=== PATIENT | male | born 2000 | race Caucasian/White ===

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

== ENCOUNTER → 2019-11-25 | Outpatient (CLI) | payer BC | END | disposition home or self-care (01) | LOC: LABWHC1 06:52 | PROVIDERS: ATTEND Physician Assistant | DX: Z11.59 Encounter for screening for other viral diseases (principal); Z20.828 Contact with and (suspected) exposure to other viral communicable diseases ==

== ENCOUNTER 2019-11-26 22:56 | Inpatient (IN) | payer BC ==
--- NOTE | 2019-11-27 00:06 | ED ---
Psych HPI - General Chief Complaint: Psychiatric Symptoms Stated Complaint: Mental Health Time Seen by Provider: 11/26/19 23:15 Source: patient Mode of arrival: ambulatory - History of Present Illness Initial Comments: Graeme is a 19-year-old male was brought to the ER today by police for evaluation of psychiatric symptoms. Patient states that 3 days ago he bought some energy pills from a gas station he's been taking those he has not slept for over 72 hours. 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 - Related Data Home Medications Medication Instructions Recorded Confirmed No Known Home Medications 08/14/16 08/14/16 Allergies Allergy/AdvReac Type Severity Reaction Status Date / Time No Known Allergies Allergy Verified 11/26/19 23:09 Review of Systems ROS Statement: Those systems with pertinent positive or pertinent negative responses have been documented in the HPI. ROS Other: All systems not noted in ROS Statement are negative. Past Medical History Past Medical History: No Reported History Additional Past Medical History / Comment(s): Anger problems History of Any Multi-Drug Resistant Organisms: None Reported Past Surgical History: No Surgical Hx Reported Past Psychological History: Depression Smoking Status: Never smoker Past Alcohol Use History: None Reported Past Drug Use History: None Reported General Exam - General Exam Comments Initial Comments: Physical Exam GENERAL: Patient is well-developed and well-nourished. Patient is nontoxic and well- hydrated and is in no distress. HENT: Normocephalic, Atraumatic. EYES: PERRL, EOMI Eyes are bloodshot PULMONARY: Unlabored respirations. No audible rales rhonchi or wheezing was noted. CARDIOVASCULAR: There is a regular rate and rhythm without any murmurs gallops or rubs. ABDOMEN: Soft and nontender with normal bowel sounds. SKIN: Skin is clear with no lesions or rashes and otherwise unremarkable. : Deferred NEUROLOGIC: Patient is alert and oriented x3. Moving all extremities spontaneously MUSCULOSKELETAL: Normal extremities with adequate strength and full range of motion. No lower extremity swelling or edema. No calf tenderness. PSYCHIATRIC: Rapid pressured speech, agitation, flight of ideas Limitations: no limitations Course Vital Signs 11/26/19 11/27/19 23:05 05:14 Temperature 98.2 F Pulse Rate 72 56 L Respiratory 16 16 Rate Blood Pressure 126/75 103/56 O2 Sat by Pulse 98 97 Oximetry Medical Decision Making - Medical Decision Making Patient was seen and evaluated history is obtained from patient and police Patient was petitioned by police Patient appears very manic, he admits to not sleeping has watery red eyes admits to taking [id number] energy pills Labs were unremarkable urine drug screen only positive for marijuana Patient was given oral Ativan for anxiety and agitation Patient was evaluated by EPS who agree the patient is acutely manic agree with plan for admission to inpatient psych, patient certification was completed. - Lab Data Result diagrams: 11/26/19 23:50 11/26/19 23:50 Lab Results 11/26/19 11/26/19 11/26/19 Range/Units 23:50 23:50 23:50 WBC 9.6 (4.0-11.0) k/uL RBC 4.74 (4.30-5.90) m/uL Hgb 15.6 (13.0-17.5) gm/dL Hct 44.6 (39.0-53.0) % MCV 94.1 (80.0-100.0) fL MCH 32.8 (25.0-35.0) pg MCHC 34.9 (31.0-37.0) g/dL RDW 11.9 (11.5-15.5) % Plt Count 253 (150-450) k/uL Neutrophils % 62 % Lymphocytes % 31 % Monocytes % 5 % Eosinophils % 1 % Basophils % 1 % Neutrophils # 5.9 (1.3-7.7) k/uL Lymphocytes # 3.0 (1.0-4.8) k/uL Monocytes # 0.5 (0-1.0) k/uL Eosinophils # 0.1 (0-0.7) k/uL Basophils # 0.1 (0-0.2) k/uL Sodium (137-145) mmol/L Potassium (3.5-5.1) mmol/L Chloride (98-107) mmol/L Carbon Dioxide (22-30) mmol/L Anion Gap mmol/L BUN (9-20) mg/dL Creatinine (0.66-1.25) mg/dL Est GFR (CKD-EPI)AfAm (>60 ml/min/1.73 sqM) Est GFR (CKD-EPI)NonAf (>60 ml/min/1.73 sqM) Glucose (74-99) mg/dL Calcium (8.4-10.2) mg/dL Total Bilirubin (0.2-1.3) mg/dL AST (17-59) U/L ALT (4-49) U/L Alkaline Phosphatase (38-126) U/L Total Protein (6.3-8.2) g/dL Albumin (3.5-5.0) g/dL Salicylates <1.0 mg/dL Urine Opiates Screen Not Detected (NotDetected) Ur Oxycodone Screen Not Detected (NotDetected) Urine Methadone Screen Not Detected (NotDetected) Ur Propoxyphene Screen Not Detected (NotDetected) Acetaminophen <10.0 ug/mL Ur Barbiturates Screen Not Detected (NotDetected) U Tricyclic Antidepress Not Detected (NotDetected) Ur Phencyclidine Scrn Not Detected (NotDetected) Ur Amphetamines Screen Not Detected (NotDetected) U Methamphetamines Scrn Not Detected (NotDetected) U Benzodiazepines Scrn Not Detected (NotDetected) Urine Cocaine Screen Not Detected (NotDetected) U Marijuana (THC) Screen Detected H (NotDetected) Serum Alcohol <10 mg/dL 11/26/19 Range/Units 23:50 WBC (4.0-11.0) k/uL RBC (4.30-5.90) m/uL Hgb (13.0-17.5) gm/dL Hct (39.0-53.0) % MCV (80.0-100.0) fL MCH (25.0-35.0) pg MCHC (31.0-37.0) g/dL RDW (11.5-15.5) % Plt Count (150-450) k/uL Neutrophils % % Lymphocytes % % Monocytes % % Eosinophils % % Basophils % % Neutrophils # (1.3-7.7) k/uL Lymphocytes # (1.0-4.8) k/uL Monocytes # (0-1.0) k/uL Eosinophils # (0-0.7) k/uL Basophils # (0-0.2) k/uL Sodium 140 (137-145) mmol/L Potassium 4.0 (3.5-5.1) mmol/L Chloride 107 (98-107) mmol/L Carbon Dioxide 20 L (22-30) mmol/L Anion Gap 13 mmol/L BUN 16 (9-20) mg/dL Creatinine 0.84 (0.66-1.25) mg/dL Est GFR (CKD-EPI)AfAm >90 (>60 ml/min/1.73 sqM) Est GFR (CKD-EPI)NonAf >90 (>60 ml/min/1.73 sqM) Glucose 99 (74-99) mg/dL Calcium 9.8 (8.4-10.2) mg/dL Total Bilirubin 0.9 (0.2-1.3) mg/dL AST 43 (17-59) U/L ALT 27 (4-49) U/L Alkaline Phosphatase 66 (38-126) U/L Total Protein 7.9 (6.3-8.2) g/dL Albumin 4.9 (3.5-5.0) g/dL Salicylates mg/dL Urine Opiates Screen (NotDetected) Ur Oxycodone Screen (NotDetected) Urine Methadone Screen (NotDetected) Ur Propoxyphene Screen (NotDetected) Acetaminophen ug/mL Ur Barbiturates Screen (NotDetected) U Tricyclic Antidepress (NotDetected) Ur Phencyclidine Scrn (NotDetected) Ur Amphetamines Screen (NotDetected) U Methamphetamines Scrn (NotDetected) U Benzodiazepines Scrn (NotDetected) Urine Cocaine Screen (NotDetected) U Marijuana (THC) Screen (NotDetected) Serum Alcohol mg/dL Disposition Clinical Impression: Acute psychosis Disposition: TRANSFER TO PSYCH HOSP/UNIT Condition: Stable Is patient prescribed a controlled substance at d/c from ED?: No
[2019-11-27 00:09] LABS: Basophils # (A) 0.1 k/uL (0-0.2); Basophils % (A) 1 %; Eosinophils # (A) 0.1 k/uL (0-0.7); Eosinophils % (A) 1 %; HCT 44.6 % (39.0-53.0); HGB 15.6 gm/dL (13.0-17.5); Lymphocytes % (A) 31 %; MCH 32.8 pg (25.0-35.0); MCHC 34.9 g/dL (31.0-37.0); MCV 94.1 fL (80.0-100.0); Mean Platelet Volume 7.6; Monocytes # (A) 0.5 k/uL (0-1.0); Monocytes % (A) 5 %; Neutrophils # (A) 5.9 k/uL (1.3-7.7); Neutrophils % (A) 62 %; Platelet Count 253 k/uL (150-450); RBC 4.74 m/uL (4.30-5.90); RDW 11.9 % (11.5-15.5); WBC 9.6 k/uL (4.0-11.0)
[2019-11-27 00:18] LABS: Cocaine Screen,Urine Not Detected (NotDetected); Phencyclidine Screen,Urine Not Detected (NotDetected); Urn Cannabinoid Scrn Detected (NotDetected)
[2019-11-27 00:19] LABS: Amphetamine Screen,Urine Not Detected (NotDetected); Barbiturate Screen,Urine Not Detected (NotDetected); Benzodiazepines Screen,Urine Not Detected (NotDetected); Methadone Screen, Urine Not Detected (NotDetected); Opiate Screen,Urine Not Detected (NotDetected); Oxycodone Screen, Urine Not Detected (NotDetected); Tricyclic Antidepressant,Urine Not Detected (NotDetected)
[2019-11-27 00:23] LABS: Acetaminophen <10.0 ug/mL; Alcohol <10 mg/dL; Salicylate <1.0 mg/dL
[2019-11-27 01:45] LABS: ALT 27 U/L (4-49); African American GFR (CKD) >90 (>60 ml/min/1.73 sqM); Albumin 4.9 g/dL (3.5-5.0); Anion Gap 13 mmol/L; Blood Urea Nitrogen 16 mg/dL (9-20); Calcium 9.8 mg/dL (8.4-10.2); Carbon Dioxide 20 mmol/L (22-30); Chloride 107 mmol/L (98-107); Glucose 99 mg/dL (74-99); Non-African American GFR(CKD) >90 (>60 ml/min/1.73 sqM); Sodium 140 mmol/L (137-145); Total Bilirubin 0.9 mg/dL (0.2-1.3); Total Protein 7.9 g/dL (6.3-8.2)
[2019-11-27] MEDS ORDERED: LORazepam 1 MG TAB PO STA (01:58)
[2019-11-27 02:20] LABS: AST 43 U/L (17-59); Alkaline Phosphatase 66 U/L (38-126)
[2019-11-27] MEDS ORDERED: MAG HYDROX/AL HYDROX/SIMETH 30 ML CUP PO PRN (05:13)
[2019-11-27] MEDS ORDERED: MAGNESIUM HYDROXIDE 2,400 MG/10 ML CUP PO PRN (05:13)
[2019-11-27 09:00] LABS: Albumin 4.3 g/dL (3.5-5.0); Bilirubin, Delta 0.2 mg/dL (0.0-0.2); Bilirubin,Unconjugated 1.1 mg/dL (0.0-1.1); Total Bilirubin 1.3 mg/dL (0.2-1.3); Total Protein 6.8 g/dL (6.3-8.2)
[2019-11-27] MEDS ORDERED: ZIPRASIDONE 20 MG VIAL IM ONE (11:04)
[2019-11-27] MEDS ORDERED: WATER FOR INJECTION, STERILE 10 ML IV ONE (11:04)
[2019-11-27] MEDS: ZIPRASIDONE 20 MG VIAL IM PRN (11:39)
[2019-11-27] MEDS: LORazepam 1 MG TAB PO PRN ×2 (11:40→23:53)
[2019-11-27] MEDS ORDERED: LORazepam 2 MG/ML INJ IM STA (11:48)
[2019-11-27] MEDS ORDERED: LORazepam 2 MG/ML INJ ONE (11:50)
--- NOTE | 2019-11-27 13:47 | P.HP ---
Psychiatric H&P - . H&P Date: 11/27/19 History & Physical: IDENTIFYING DATA: He is a 19-year-old single male admitted to the psychiatric unit involuntarily. His mother completed the petition that read "has not slept in days, taking caffeine pills to stay awake, spray painting the car, quit his job, posting threats unsocial media, referring to himself and a third alliance party. calling himself different names. Reckless behavior, potential self-harm, thinks he is a rapper. Getting mad about fast food orders been messed up, blowing up cell phones, friends had called me saying that this is unusual." HISTORY OF PRESENT ILLNESS: I reviewed the medical record and interviewed the patient. I left messages to speak with his mother. He denied all the allegations in the petition. He alleged she had difficulty sleeping only on the days where he took some "speed", caffeine pills" energy drinks". He denied persistent problems with insomnia. He admitted that he spray painted his car multiple colors but he did so because he plans to become a rapper and wants people to "notice me." He quit his job of 2 years because "they were not treating me right." He has plans to drive his car to [facility] and become a "rapper". When I asked the location of [facility] he replied that his "[place]where below [place]." He justified his anger over a fast food order. He complained that his mother is continuing to control his life. He talked about his past history where she has placed him in psychiatric hospitals beginning was 15 years old. He reported he stated that he is not going back to "[facility]." He denied psychotic symptoms such as auditory, visual or olfactory halluci nations, ideas reference, thought insertion, thought broadcasting or thought control. He is able to maintain his behavior until approximately 1140. He became increasingly agitated and distressed. He attemptedto leave the unit and began yelling and swearing at nursing staff when they redirected him. He became angry when he could not call his father (the wall phones are turned off during groups) . He demanded a awyer. He became increasingly angry and started slamming the phone repeatedly. When nursing told him that he will get an injection if he does not calm, he started to "back away". When staff attempted approach him he began to hit and kick wildly. Several staff carried him to his room and administered Geodon 20mg IM medication. A "Mr. Roche" was called. PAST PSYCHIATRIC HISTORY: This is his fourth psychiatric hospitalization. He was first admitted to this [facility] at 15. He is had 2 other admissions to [facility]. All of the admissions were involuntary. He has a diagnosis of bipolar illness. He is currently not in treatment or prescribed psychotropic medications. PAST MEDICAL HISTORY: He has no chronic medical Illnesses. ALLERGIES: NO KNOWN DRUG ALLERGIES SUBSTANCE USE HISTORY: He was vague about his substance use history. He denied use of drugs except for using "speed ... that one time." He also denied use of marijuana. His UDS was positive for marijuana. Her serum alcohol was 0. He is never been any substance abuse treatment program. FAMILY PSYCHIATRIC/SUBSTANCE USE HISTORY: He is unaware of family history of psychiatric illness LEGAL HISTORY: He is no history of major medical problems. SOCIAL HISTORY: His parents when he was 1 years old. He was raised primarily by his mother. His father lives in [place]. He has 1 sister. He left school in the 10th grade and did not receive his GED. 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 MENTAL STATUS EXAM: He presented as a thin casually groomed young male who was guarded and suspicious. He made eye contact and appeared to attend to the interview. He had no distinguishing features or prominent physical modalities. He had a blunted facial expression. He was restless but not agitated or impulsive. His speech was spontaneous with slight increase in rate and rhythm. His affect was irritable and suspicious. He denied suicidal ideation and wishes. He denied homicidal ideation. He denied feeling hopeless, helpless or worthless. He ruminated about the circumstances that brought him in hospital, his multiple psychiatric hospitalizations in his relationship with his mother. He did not express clear ideas reference or delusional beliefs. He is paranoid and had very paranoid ideation. His thinking was concrete but his associations were coherent and logical. He denied hallucinations and did not appear to responding to internal stimuli. STRENGTHS: Good physical health, supportive family, history of gainful employment, stable housing WEAKNESSES: Lack of insight or understanding of his mental illness, substance use IMPRESSION: He is a 19-year-old single male admitted to the psychiatric unit involuntarily with a recent marked change in behavior characterized by paranoia, aggressiveness insomnia agitation and impaired judgment. He has a recent history of abuse of stimulants including "speed", caffeine and "energy drinks". He is restless, agitated, paranoid and impulsive. His management on the unit required administration of IM medications. He should be treated on an inpatient basis with combination of psychopharmacology and multimodal therapy. Differential includes substance-induced mood disorder as well as bipolar illness. PRINCIPLE DIAGNOSIS: Unspecified mood disorder, rule out bipolar disorder most recent episode manic, rule out substance-induced mood disorder, rule out amphetamine use disorder, rule out cannabis use disorder RECOMMENDATION: Admitted to the psychiatric unit. Proceed with involuntary hospitalization. Safety precautions. Consult medicine for initial physical exam and medical history. dish room worker completed initial psychosocial assessment coordinate discharge and aftercare. Begin Abilify 10 mg daily and titrated according to clinical response and tolerance. Administer medications IM after the probate order if refuses the oral medication. Encourage participation in therapeutic groups and activities. Obtain collateral information from family. Family clinical status response to treatment daily basis. Allergies Allergy/AdvReac Type Severity Reaction Status Date / Time No Known Allergies Allergy Verified 11/27/19 05:45 Vital Signs Temp 98.5 F 11/27/19 05:40 Pulse 87 11/27/19 05:40 Resp 14 11/27/19 05:40 BP 140/75 11/27/19 05:40 Pulse Ox 99 11/27/19 05:40 Intake & Output 11/26/19 11/27/19 11/27/19 18:59 06:59 18:59 Weight 64.495 kg Laboratory Last Values WBC 9.6 k/uL (4.0-11.0) 11/26/19 23:50 RBC 4.74 m/uL (4.30-5.90) 11/26/19 23:50 Hgb 15.6 gm/dL (13.0-17.5) 11/26/19 23:50 Hct 44.6 % (39.0-53.0) 11/26/19 23:50 MCV 94.1 fL (80.0-100.0) 11/26/19 23:50 MCH 32.8 pg (25.0-35.0) 11/26/19 23:50 MCHC 34.9 g/dL (31.0-37.0) 11/26/19 23:50 RDW 11.9 % (11.5-15.5) 11/26/19 23:50 Plt Count 253 k/uL (150-450) 11/26/19 23:50 Neutrophils % 62 % 11/26/19 23:50 Lymphocytes % 31 % 11/26/19 23:50 Monocytes % 5 % 11/26/19 23:50 Eosinophils % 1 % 11/26/19 23:50 Basophils % 1 % 11/26/19 23:50 Neutrophils # 5.9 k/uL (1.3-7.7) 11/26/19 23:50 Lymphocytes # 3.0 k/uL (1.0-4.8) 11/26/19 23:50 Monocytes # 0.5 k/uL (0-1.0) 11/26/19 23:50 Eosinophils # 0.1 k/uL (0-0.7) 11/26/19 23:50 Basophils # 0.1 k/uL (0-0.2) 11/26/19 23:50 Sodium 140 mmol/L (137-145) 11/26/19 23:50 Potassium 4.0 mmol/L (3.5-5.1) 11/26/19 23:50 Chloride 107 mmol/L (98-107) 11/26/19 23:50 Carbon Dioxide 20 mmol/L (22-30) L 11/26/19 23:50 Anion Gap 13 mmol/L 11/26/19 23:50 BUN 16 mg/dL (9-20) 11/26/19 23:50 Creatinine 0.84 mg/dL (0.66-1.25) 11/26/19 23:50 Est GFR (CKD-EPI)AfAm >90 (>60 ml/min/1.73 sqM) 11/26/19 23:50 Est GFR (CKD-EPI)NonAf >90 (>60 ml/min/1.73 sqM) 11/26/19 23:50 Glucose 99 mg/dL (74-99) 11/26/19 23:50 Calcium 9.8 mg/dL (8.4-10.2) 11/26/19 23:50 Total Bilirubin 1.3 mg/dL (0.2-1.3) 11/27/19 07:51 Conjugated Bilirubin 0.0 mg/dL (0.0-0.3) 11/27/19 07:51 Unconjugated Bilirubin 1.1 mg/dL (0.0-1.1) 11/27/19 07:51 Delta Bilirubin 0.2 mg/dL (0.0-0.2) 11/27/19 07:51 AST 37 U/L (17-59) 11/27/19 07:51 ALT 26 U/L (4-49) 11/27/19 07:51 Alkaline Phosphatase 59 U/L (38-126) 11/27/19 07:51 Total Protein 6.8 g/dL (6.3-8.2) 11/27/19 07:51 Albumin 4.3 g/dL (3.5-5.0) 11/27/19 07:51 Triglycerides 19 mg/dL (<150) 11/27/19 07:51 Cholesterol 96 mg/dL (<200) 11/27/19 07:51 LDL Cholesterol, Calc 41 mg/dL (0-99) 11/27/19 07:51 HDL Cholesterol 51 mg/dL (40-60) 11/27/19 07:51 TSH 4.020 mIU/L (0.465-4.680) 11/27/19 07:51 Salicylates <1.0 mg/dL 11/26/19 23:50 Urine Opiates Screen Not Detected (NotDetected) 11/26/19 23:50 Ur Oxycodone Screen Not Detected (NotDetected) 11/26/19 23:50 Urine Methadone Screen Not Detected (NotDetected) 11/26/19 23:50 Ur Propoxyphene Screen Not Detected (NotDetected) 11/26/19 23:50 Acetaminophen <10.0 ug/mL 11/26/19 23:50 Ur Barbiturates Screen Not Detected (NotDetected) 11/26/19 23:50 U Tricyclic Antidepress Not Detected (NotDetected) 11/26/19 23:50 Ur Phencyclidine Scrn Not Detected (NotDetected) 11/26/19 23:50 Ur Amphetamines Screen Not Detected (NotDetected) 11/26/19 23:50 U Methamphetamines Scrn Not Detected (NotDetected) 11/26/19 23:50 U Benzodiazepines Scrn Not Detected (NotDetected) 11/26/19 23:50 Urine Cocaine Screen Not Detected (NotDetected) 11/26/19 23:50 U Marijuana (THC) Screen Detected (NotDetected) H 11/26/19 23:50 Serum Alcohol <10 mg/dL 11/26/19 23:50 11/27/19 13:20
[2019-11-27] MEDS ORDERED: LORazepam 2 MG/ML INJ IM PRN (14:36)
--- NOTE | 2019-11-27 16:18 | P.HPMEDMHU ---
History of Present Illness H&P Date: 11/27/19 Chief Complaint: Psychosis Patient is 19-year-old male with no known past medical history significant admitted to the mental health unit for psychosis. Patient seen and examined at bedside. He denies any recent cough, cold, fever, flu, nausea, vomiting, or dysuria. Review of Systems Pertinent positives and negatives as discussed in HPI, a complete review of systems was performed and all other systems are negative. Past Medical History Past Medical History: No Reported History Additional Past Medical History / Comment(s): Anger problems History of Any Multi-Drug Resistant Organisms: None Reported Past Surgical History: No Surgical Hx Reported Smoking Status: Never smoker Past Alcohol Use History: None Reported - Past Family History Father Family Medical History: No Reported History Mother Family Medical History: No Reported History Medications and Allergies Home Medications Medication Instructions Recorded Confirmed Type No Known Home Medications 08/14/16 11/27/19 History Allergies Allergy/AdvReac Type Severity Reaction Status Date / Time No Known Allergies Allergy Verified 11/27/19 05:45 Physical Exam Osteopathic Statement: *. No significant issues noted on an osteopathic structural exam other than those noted in the History and Physical/Consult. Vitals: Vital Signs Temp Pulse Pulse Resp BP BP Pulse Ox 11/27/19 05:40 98.5 F 87 14 140/75 99 11/27/19 05:14 56 L 16 103/56 97 11/26/19 23:05 98.2 F 72 16 126/75 98 Intake and Output 11/27/19 11/27/19 11/27/19 06:59 14:59 22:59 Other: Weight 64.495 kg General: ill appearing, No distress, appears at stated age, normal weight Derm: no unusual rashes/lesions no unusual ecchymoses, warm, dry Head: atraumatic, normocephalic, symmetric Eyes: EOMI, no lid lag, anicteric sclera, pupils equal round reactive to light ENT: Nose and ears atraumatic, no thrush, no pharyngeal erythema Neck: No thyromegaly, no cervical lymphadenopathy, trachea midline, supple Mouth: no lip lesion, mucus membranes moist Cardiovascular: S1S2 reg, no murmur, positive posterior tibial pulse bilateral, no edema, capillary refill less than 2 seconds Lungs: Decreased bs bilateral, no rhonchi, no rales , no accessory muscle use Abdominal: soft, nontender to palpation, no guarding, no appreciable organomegaly, normal bowel sounds Ext: no gross muscle atrophy, muscle strength 5 out of 5 in all 4 extremities grossly, no contractures, Neuro: CN II-XI grossly intact, light touch intact all 4 extremities, finger to nose within normal limits, Psych: awake, slight confusion, tired after having injection Cranial Nerve Examination - Cranial Nerves Cranial Nerve II- Optic: Intact Cranial Nerve III- Oculomotor: Intact Cranial Nerve IV- Trochlear: Intact Cranial Nerve V- Trigeminal: Intact Cranial Nerve - Abducens: Intact Cranial Nerve VII- Facial: Intact Cranial Nerve VIII- Auditory: Intact Cranial Nerve IX- Glossopharyngeal: Intact Cranial Nerve X- Vagus: Intact Cranial Nerve XI- Accessory: Intact Cranial Nerve XII- Hypoglossal: Intact Results CBC & Chem 7: 11/26/19 23:50 11/26/19 23:50 Labs: Abnormal Lab Results - Last 24 Hours (Table) 11/26/19 11/26/19 Range/Units 23:50 23:50 Carbon Dioxide 20 L (22-30) mmol/L U Marijuana (THC) Screen Detected H (NotDetected) Assessment and Plan Assessment: Well exam 19 year old male - will nee PCP on discharge Psychosis - your psych management
[2019-11-27 18:07] LABS: Hemoglobin A1C 5.3 % (4.0-6.0)
[2019-11-28] MEDS: ACETAMINOPHEN TAB 325 MG TAB PO PRN (12:13)
--- NOTE | 2019-11-28 13:47 | P.PN ---
Progress Note - Text Progress Note Date: 11/28/19 Clinical Problems: Unspecified mood disorder, rule out bipolar disorder most recent episode manic, rule out substance-induced mood disorder, rule out amphetamine use disorder, rule out cannabis use disorder Interim history: I reviewed the medical record, interviewed the patient and discuss his treatment and treatment plan during team meeting. He informed me that he is ready for discharge. 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 He had a middle folder with several sheets of paper where he had written out his "rap songs." He walked out of the office prematurely when I explained that he will not be discharged today. He came to the hospital involuntarily and we are recommending treatment with a mood stabilizer. He replied that he will not take medications and left the office. Yesterday morning he had episodes of agitation requiring a "Mr. strong" and IM injection of Geodon 20 mg. According to nurse, he was yelling and swearing at the motel front desk attendant demanding to call his father. The nurse told him that the phones were turned off during group therapy. He demanded to speak with a physics technical officer and was offered to use the phone to call the physics technical officer. He became angry and started slamming the phone. The nurse could not redirect him or calm his anger. He began to "wildly" scream and kick when staff attempted to restrain him. Mental status exam: Appendectomy presented as a thin 19-year-old young male who was initially pleasant but became quickly angry and demanding. He made eye contact and appeared to attend to the interview. He had initially bright and cheerful facial expression but when his mood change his facial expression was consistent. He has been restless and frequently pace the unit. His speech is rapid but with normal volume. His affect is elevated, labile and at times intense and appropriate. He did not express suicidal ideation or wishes. He is not expressed homicidal ideation. His thinking was concrete but his associations were coherent and organized. He denied hallucinations did not appear to be responding to internal stimuli. Assessment: In regards agitated, irritable and emotionally labile. His presentation is most consistent with drew or hypomania. Plan: Continue inpatient treatment. Safety precautions. Proceed with involuntary hospitalization. Continue Ativan 1 mg IM 3 times a day when necessary and Geodon 20 mg IM twice a day when necessary for agitation acute psychosis. Continue discussion about the need for treatment with a mood stabilizer such as a second generation antipsychotic, lithium, Depakote, left mid goal or Tegretol. Encourage participation in therapeutic groups and activ ities as tolerated. Evaluate clinical status response to treatment daily basis.
[2019-11-28] MEDS: LORazepam 1 MG TAB PO PRN (15:24)
[2019-11-28] MEDS: ZIPRASIDONE 20 MG VIAL IM PRN (15:51)
[2019-11-29] MEDS: ACETAMINOPHEN TAB 325 MG TAB PO PRN ×2 (15:28→23:28)
--- NOTE | 2019-11-29 18:21 | P.PN ---
Progress Note - Text Progress Note Date: 11/29/19 Subjective: Patient was seen today as a cross coverage for Dr. Cavazos. The patient was evaluated, chart reviewed, case discussed with the treatment team. Patient reported good sleep last night. Appetite was reported as "fair ". Patient has not been going to many groups and other unit activities. The patient refuses to take any psychiatric medications and none prescribed. As per progress note Abilialexandry was discussed with the patient, but apparently the patient refuses any m edications. Patient presents was manic symptoms including been very disruptive and intrusive, talkative, pressured speech, and tangential. Patient was insisting on not taking any psychiatric medications, and he refused to discuss any psych medications. He was superficial in his answers, and generally denies any psychiatric symptoms including hallucinations, paranoid ideation, depression, anxiety, or mood swings. He denies any suicidal or homicidal thoughts, and was fixated on discharge. He presents to some degree internally preoccupied and has very limited insight about his psychiatric illness and the need for treatment. Objective: Vitals has been reviewed. Mental status examination; Appearance: The patient appears stated age, disheveled, not well groomed, average body built, no specific features. Gait/posture: Normal gait, Normal arm swinging: No abnormal movements. Attitude and behavior: Not engaged, not cooperative, intermittent eye contact. Motor activity: Increased psychomotor activity Speech: Pressured, hyperverbal Mood: Irritable Affect: To some degree labile Thought form: Tangential. Thought content: Non-delusional, denies suicidal thoughts, denies homicidal thoughts, denies intentions or plans. Perception: Denies any auditory or visual hallucinations Attention: No impairment. Orientation: Patient is oriented to time place person and situation. Insight: Patient has poor insight about psychiatric disorder. Judgment: Patient has limited judgment about his psychiatric treatment. Assessment: Unspecified mood disorder. Rule out bipolar disorder, most recent episode manic. Rule out substance-induced mood disorder. Rule out amphetamine use disorder. Rule out cannabis use disorder. Plan: Continue inpatient level of care due to need for further monitoring and stabilization Precautions: Continue 15 minutes check for safety. Consider medical consultation if any acute medical issues arise. Provide the patient individual, group therapy, substance use disorder counseling to give better insight and learn coping skills. Continue follow-up with the patient daily to monitor progress of mood symptoms. Medications: Patient refused to take any psychiatric medications. Continue encourage patient to consider medications. May be considered court order to start psychiatric medications. Continue when necessary medications for agitation and severe anxiety. Discharge patient to OUTPATIENT services upon a stabilization
[2019-11-30] MEDS: LORazepam 1 MG TAB PO PRN (09:50)
--- NOTE | 2019-11-30 16:20 | P.PN ---
Progress Note - Text Progress Note Date: 11/30/19 Subjective: Patient was seen today as a cross coverage for Dr. Cavazos. The patient was evaluated, chart reviewed, case discussed with the treatment team. Patient continues to present the same as yesterday that he is intrusive with some disruptive behavior, talkative with pressured speech. Patient refuses to discuss any psychiatric medications and was very fixated on discharge tomorrow. He was very superficial and evasive in his answers and generally denies any psychiatric symptoms including depression, suicidal/homicidal ideation, hallucinations, or delusions. Patient reports good sleep last night and he denies any appetite problems. He attends some groups but eventually has been very disruptive and not able to stop talking. Patient continued to have very poor insight about his mental illness and need for treatment Objective: Vitals has been reviewed. Mental status examination; Appearance: The patient appears stated age, disheveled, not well groomed, average body built, no specific features. Gait/posture: Normal gait, Normal arm swinging: No abnormal movements. Attitude and behavior: Not engaged, not cooperative, intermittent eye contact. Motor activity: Increased psychomotor activity Speech: Pressured, hyper-verbal Mood: Irritable Affect: To some degree labile Thought form: Tangential. Thought content: Non-delusional, denies suicidal thoughts, denies homicidal thoughts, denies intentions or plans. Perception: Denies any auditory or visual hallucinations Attention: No impairment. Orientation: Patient is oriented to time place person and situation. Insight: Patient has poor insight about psychiatric disorder. Judgment: Patient has limited judgment about his psychiatric treatment. Assessment: Unspecified mood disorder. Rule out bipolar disorder, most recent episode manic. Rule out substance-induced mood disorder. Rule out amphetamine use disorder. Rule out cannabis use disorder. Plan: Continue inpatient level of care due to need for further monitoring and stabilization Precautions: Continue 15 minutes check for safety. Consider medical consultation if any acute medical issues arise. Provide the patient individual, group therapy, substance use disorder counseling to give better insight and learn coping skills. Continue follow-up with the patient daily to monitor progress of mood symptoms. Medications: Patient refused to take any psychiatric medications. Continue encourage patient to consider medications. May be considered court order to start psychiatric medications. Continue when necessary medications for agitation and severe anxiety. Discharge patient to OUTPATIENT services upon a stabilization
--- NOTE | 2019-12-01 15:29 | P.PN ---
Progress Note - Text Progress Note Date: 12/01/19 Clinical Problems: Unspecified mood disorder, rule out bipolar disorder most recent episode manic, rule out substance-induced mood disorder, rule out amphetamine use disorder, rule out cannabis use disorder Interim history: I reviewed the medical record, interviewed the patient and discuss his treatment and treatment plan during team meeting. He denied problems or concerns other than wanting to be discharged. He met with the court probate compliance attorney and deferred the probate hearing. We discussed treatment he agreed to begin Abilify. Mental status exam: He presented as a thin 19-year-old young male who was initially pleasant and cooperative. He made eye contact and appeared to attend to the interview. He had a blunted facial expression. He has been restless and frequently pace the unit. His speech is rapid but with normal volume. His affect is elevated, labile and at times intense and appropriate. He did not express suicidal ideation or wishes. He is not expressed homicidal ideation. His thinking was concrete but his associations were coherent and organized. He denied hallucinations did not appear to be responding to internal stimuli. Assessment: He remains agitated, irritable and emotionally labile. His presentation is most consistent with drew or hypomania. Plan: Continue inpatient treatment. Safety precautions. Proceed with involuntary hospitalization. Begin Abilify 10 mg daily. Continue Ativan 1 mg IM 3 times a day when necessary and Geodon 20 mg IM twice a day when necessary for agitation acute psychosis. Encourage participation in therapeutic groups and activities as tolerated. Evaluate clinical status response to treatment [place].
[2019-12-01] MEDS: ARIPiprazole 10 MG TAB PO SCH (16:45)
[2019-12-02] MEDS: ARIPiprazole 10 MG TAB PO SCH (09:53)
--- NOTE | 2019-12-02 14:59 | P.PN ---
Progress Note - Text Progress Note Date: 12/02/19 Clinical Problems: Unspecified mood disorder, rule out bipolar disorder most recent episode manic, rule out substance-induced mood disorder, rule out amphetamine use disorder, rule out cannabis use disorder Interim history: I reviewed the medical record, interviewed the patient and discuss his treatment and treatment plan during team meeting. He denied problems or concerns other than wanting to be discharged. He refused Abilify. He stated that he talked to his dad who support his decision not to take medications. Mental status exam: He presented as a thin 19-year-old young male who was initially pleasant and cooperative. He made eye contact and appeared to attend to the interview. He had a blunted facial expression. He has been restless and frequently pace the unit. His speech was rapid but with normal volume. His affect is elevated, labile and at times intense and appropriate. He did not express suicidal ideation or wishes. He is not expressed homicidal ideation. His thinking was concrete but his associations were coherent and organized. He denied hallucinations did not appear to be responding to internal stimuli. Assessment: He remains agitated, irritable and emotionally labile. His presentation is most consistent with hypomania. Plan: Continue inpatient treatment. Safety precautions. Proceed with involuntary hospitalization. Begin Abilify 10 mg daily. Continue Ativan 1 mg IM 3 times a day when necessary and Geodon 20 mg IM twice a day when necessary for agitation acute psychosis. Encourage participation in therapeutic groups and activities as tolerated. Evaluate clinical status response to treatment daily basis.
[2019-12-03] MEDS: ARIPiprazole 10 MG TAB PO SCH (10:19)
--- NOTE | 2019-12-03 13:40 | P.PN ---
Progress Note - Text Progress Note Date: 12/03/19 Clinical Problems: Unspecified mood disorder, rule out bipolar disorder most recent episode manic, rule out substance-induced mood disorder, rule out amphetamine use disorder, rule out cannabis use disorder Interim history: I reviewed the medical record, interviewed the patient and discuss his treatment and treatment plan during team meeting. He stated that his father just arrived to [place] from [place]. He complained that his mother has conspired to make him look ill, take medications and force him to return to the hospital for many years. He alleged that his father would attest that her actions were unnecessary. He became disheartened when I explained the involuntary hospitalization process. We could not discharge him until the probate hearing that is scheduled for December 14. Even after our meeting and discussion of the involuntary process he again asked if she could be discharge to his father's supervision. He asked me to speak with his father ([phone]). There is no answer and I left a message. He denied the need for psychiatric treatment and refused to consider treatment with psychotropic medications." Her mother forced me to take them as a child and I am and adult and don't need take them anymore." Mental status exam: He presented as a thin 19-year-old young male who was pleasant and cooperative. He made eye contact and appeared to attend to the interview. He had a blunted facial expression. He has been restless and frequently pace the unit. His speech was slow but with normal volume. His affect was depressed. He did not express suicidal ideation or wishes. He is not expressed homicidal ideation. His thinking was concrete but his associations were coherent and organized. He denied hallucinations did not appear to be responding to internal stimuli. Assessment: He is less agitated irritable and emotionally labile. He is appearing more depressed than on admission. Plan: Continue inpatient treatment. Safety precautions. Proceed with involuntary hospitalization. Continue Ativan 1 mg IM 3 times a day when necessary and Geodon 20 mg IM twice a day when necessary for agitation acute psychosis. Encourage participation in therapeutic groups and activities as tolerated. Evaluate clinical status response to treatment daily basis.
[2019-12-03] MEDS: ZIPRASIDONE 20 MG VIAL IM PRN (18:13)
--- NOTE | 2019-12-04 15:40 | P.PN ---
Progress Note - Text Progress Note Date: 12/04/19 Clinical Problems: Unspecified mood disorder, rule out bipolar disorder most recent episode manic, rule out substance-induced mood disorder, rule out amphetamine use disorder, rule out cannabis use disorder Interim history: I reviewed the medical record, interviewed the patient and discuss his treatment and treatment plan during team meeting. His only concern was discharge and he asked me several times during the day if she can be discharged. I reminded him of his legal situation and explained that he will not be discharged at least until the probate hearing. He continues to refuse to take psychotropic medications and denies the need for medications. " By father community to take medications." He became acutely agitated yesterday to the point he required security to assist with administration of Geodon 20 mg IM. Apparently the sources of stress was not receiving the [place] that he had ordered. Mental status exam: He presented as a thin 19-year-old young male who was pleasant and cooperative. He made eye contact and appeared to attend to the interview. He had a blunted facial expression. He has been restless and frequently pace the unit. His speech was slow but with normal volume. His affect was irritable. He did not express suicidal ideation or wishes. He is not expressed homicidal ideation. His thinking was concrete but his associations were coherent and organized. He denied hallucinations did not appear to be responding to internal stimuli. Assessment: He is continuing to have difficulties with behavioral dyscontrol with peers of agitation necessitating IM medications. Plan: Continue inpatient treatment. Safety precautions. Proceed with involuntary hospitalization. Continue Ativan 1 mg IM 3 times a day when necessary and Geodon 20 mg IM twice a day when necessary for agitation acute psychosis. Encourage participation in therapeutic groups and activities as tolerated. Evaluate clinical status response to treatment daily basis.
[2019-12-04] MEDS: LORazepam 1 MG TAB PO PRN (16:02)
--- NOTE | 2019-12-05 15:04 | P.PN ---
Progress Note - Text Progress Note Date: 12/05/19 Clinical Problems: Unspecified mood disorder, rule out bipolar disorder most recent episode manic, rule out substance-induced mood disorder, rule out amphetamine use disorder, rule out cannabis use disorder Interim history: I reviewed the medical record, interviewed the patient and discuss his treatment and treatment plan during team meeting. He received 1 mg Ativan IM yesterday afternoon for increasing agitation, irritability and disruptiveness. Nursing notes indicate that he would not calm with redirection or verbal interventions. He denied that he had an episode of dyscontrol yesterday and denied that he received an IM injection. He continues denied need for this hospitalization or the need for psychotropic medications. He cites his father's opinion as a reason for not agreeing to take psychotropic medications. He denied problems and concerns other than wanting to be released from the hospital. Mental status exam: He presented as a thin 19-year-old young male who was pleasant and cooperative. He made eye contact and appeared to attend to the interview. He had a blunted but bright facial expression. He has been restless and frequently pace the unit. His speech was slow but with normal volume. His affect was calm and appropriate. He did not express suicidal ideation or wishes. He is not expressed homicidal ideation. His thinking was concrete but his associations were coherent and organized. He denied hallucinations did not appear to be responding to internal stimuli. Assessment: He is continuing to have difficulties with behavioral control with periods of agitation necessitating IM medications. Plan: Continue inpatient treatment. Safety precautions. Probate hearing scheduled for 12/10/2019. Continue Ativan 1 mg IM 3 times a day when necessary and Geodon 20 mg IM twice a day when necessary for agitation acute psychosis. Encourage participation in therapeutic groups and activities as tolerated. Evaluate clinical status response to treatment daily basis.
[2019-12-06] MEDS ORDERED: ZIPRASIDONE 20 MG VIAL IM ONE (08:55)
--- NOTE | 2019-12-06 17:34 | P.PN ---
Progress Note - Text Progress Note Date: 12/06/19 Interval history: Patient is seen in cross coverage today. He relays that his mood is doing great. He is currently not on any scheduled medication. He has an upcoming court hearing of this coming week. Mental status exam: He is alert and cooperative with the interview. His speech is fluent, not rapid or pressured. His thought processes organized. His mood he describes as great. He denies any thoughts of harm to self or others. He does not verbalize any hallucinations. Plan: We'll continue to monitor patient's status and continue to provide cross coverage through the weekend.
[2019-12-06] MEDS: ZIPRASIDONE 20 MG VIAL IM PRN (23:39)
--- NOTE | 2019-12-07 17:20 | P.PN ---
Progress Note - Text Progress Note Date: 12/07/19 Interval history: Patient is seen in [facility] in today. He states last night he received 2 injections. He states that he was ending up for a peer on the unit. He states he felt his heart was beating really fast after he got the injections but then he fell asleep. Says he attended 1 group today. He is also been doing some reading. Mental status exam: He is alert and cooperative with the interview. His speech is fluent, not rapid or pressured. Thought processes are organized. His mood currently appears to be stable. He is not exhibiting any manic symptoms does not complain of any significant depression. He does not voice any thoughts of harm to self or others. Plan: Patient will be made tainted with current treatment regimen. Continue to monitor his status and monitor his ongoing response to treatment.
[2019-12-07] MEDS: ACETAMINOPHEN TAB 325 MG TAB PO PRN (22:59)
--- NOTE | 2019-12-08 13:31 | P.PN ---
Progress Note - Text Progress Note Date: 12/08/19 Clinical Problems: Bipolar disorder most recent episode manic, rule out amphetamine use disorder, rule out cannabis use disorder Interim history: I reviewed the medical record, interviewed the patient and discuss his treatment and treatment plan during team meeting. He continues to have episodes of behavioral dyscontrol. For example, Sunday afternoon he became acutely agitated and acted sexually inappropriate towards nurses. He perseverated about the involuntary hospitalization alleging that we are formulating his rights by keeping him in the hospital. He could not be redirected and nursing duties assistance security to administer 20 mg of Geodon and 1 mg of Ativan IM. He requested to be discharged home. He alleged that he has no reason to be in a psychiatric hospital and that his mother "lied" on the petition. He repeated that she will not take any medications. Mental status exam: He presented as a thin 19-year-old young male who was pleasant during the interview. He made eye contact and appeared to attend to the interview. He had a bright facial expression. He has been restless and frequently pace the unit. His speech was spontaneous with normal rate, rhythm and volume. His affect was elevated but not inappropriate. He did not express suicidal ideation or wishes. He denied homicidal ideation. His thinking was concrete but his associations were coherent and organized. He perseverated about the hospitalization, the involuntary process, medications and his mother. He denied hallucinations did not appear to be responding to internal stimuli. Assessment: He is continuing to have difficulties with behavioral control with periods of agitation necessitating IM medications. Plan: Continue inpatient treatment. Safety precautions. Probate hearing scheduled for 12/10/2019. Continue Ativan 1 mg IM 3 times a day when necessary and Geodon 20 mg IM twice a day when necessary for agitation acute psychosis. Encourage participation in therapeutic groups and activities as tolerated. Evaluate clinical status response to treatment daily basis.
[2019-12-08] MEDS: ACETAMINOPHEN TAB 325 MG TAB PO PRN (18:21)
--- NOTE | 2019-12-09 13:39 | P.PN ---
Progress Note - Text Progress Note Date: 12/09/19 Clinical Problems: Bipolar disorder most recent episode hypomanic, rule out amphetamine use disorder, rule out cannabis use disorder Interim history: I reviewed the medical record, interviewed the patient and discuss his treatment and treatment plan during team meeting. His only concern was discharge and he expressed concern about the probate hearing tomorrow. He again stated that he will not take medications. He has had no episodes of behavioral control last 24 hours. Mental status exam: He presented as a thin 19-year-old young male. He withdrawn and quiet. His speech was spontaneous with decreased rate, rhythm and volume. His affect was depressed but not inappropriate. He did not express suicidal ideation or wishes. He denied homicidal ideation. His thinking was concrete but his associations were coherent and organized. He perseverated about the hospitalization, the involuntary process, medications and his mother. He denied hallucinations did not appear to be responding to internal stimuli. Assessment: He is more withdrawn and depressed than in prior encounters. Plan: Continue inpatient treatment. Safety precautions. Probate hearing scheduled for 12/10/2019. Continue Ativan 1 mg IM 3 times a day when necessary and Geodon 20 mg IM twice a day when necessary for agitation acute psychosis. Encourage participation in therapeutic groups and activities as tolerated. Evaluate clinical status response to treatment daily basis.
[2019-12-10] MEDS: LORazepam 1 MG TAB PO PRN ×2 (00:28→15:52)
--- NOTE | 2019-12-10 13:59 | P.PN ---
Progress Note - Text Progress Note Date: 12/10/19 Clinical Problems: Bipolar disorder most recent episode hypomanic, rule out amphetamine use disorder, rule out cannabis use disorder Interim history: I reviewed the medical record, interviewed the patient and discuss his treatment and treatment plan during team meeting. He was anxious about the probate hearing this afternoon. After speaking with his father on the telephone he asked me to change my diagnosis and not tell the certified ophthalmic technologist that he is bipolar. He was to move to [place] with his father. His privacy attorney requested that her enjoyment of the probate hearing for an independent evaluation. He intermittently attends therapeutic groups and activities. He slept 3 hours last night. He has had not episode of behavioral dyscontrol or received IM medication in the last 48 hours. Mental status exam: He presented as a thin 19-year-old young male. He withdrawn and quiet. His speech was spontaneous with decreased rate, rhythm and volume. His affect was depressed but not inappropriate. He did not express suicidal ideation or wishes. He denied homicidal ideation. His thinking was concrete but his associations were coherent and organized. He perseverated about the hospitalization, the involuntary process, medications and his mother. He denied hallucinations did not appear to be responding to internal stimuli. Assessment: He is anxious about the probate hearing today. He continues to deny that his mental illness or require psychiatric treatment. Plan: Continue inpatient treatment. Safety precautions. Continue inpatient treatment pending the probate hearing. Continue Ativan 1 mg IM 3 times a day when necessary and Geodon 20 mg IM twice a day when necessary for agitation acute psychosis. Encourage participation in therapeutic groups and activities as tolerated. Evaluate clinical status response to treatment daily basis.
--- NOTE | 2019-12-11 13:40 | P.PN ---
Progress Note - Text Progress Note Date: 12/11/19 Clinical Problems: Bipolar disorder most recent episode hypomanic, rule out amphetamine use disorder, rule out cannabis use disorder Interim history: I reviewed the medical record, interviewed the patient and discuss his treatment and treatment plan during team meeting. We talked about the outcome of the probate hearing yesterday. He believed that that he be discharged within 1 week. I clarified that the [place] judge postponed the hearing for 2 weeks and I explained that he would remain in the hospital for at least another 2 weeks. He became very desponded, left the office and immediately went to the telephone. He then retired to his room and covered his head with a blanket. He did not attend therapeutic groups or activities yesterday. He slept 5 hours last night. He has had no episode of behavioral dyscontrol or received IM medication in the last 24 hours. Mental status exam: He presented as a thin 19-year-old young male. He withdrawn and quiet. His speech was spontaneous with decreased rate, rhythm and volume. His affect was depressed but not inappropriate. He did not express suicidal ideation or wishes. He denied homicidal ideation. His thinking was concrete but his associations were coherent and organized. He perseverated about the hospitalization, the involuntary process, medications and his mother. He denied hallucinations did not appear to be responding to internal stimuli. Assessment: He is appearing more depressed, withdrawn less involved with therapeutic Activities and his peers. I suspect that he is transitioning into a depressive phase. Plan: Continue inpatient treatment. Safety precautions. Continue inpatient treatment pending the probate hearing. Continue discussion of treatment for his mood disorder. Continue Ativan 1 mg IM 3 times a day when necessary and Geodon 20 mg IM twice a day when necessary for agitation acute psychosis. Encourage participation in therapeutic groups and activities as tolerated. Evaluate clinical status response to treatment daily basis.
--- NOTE | 2019-12-12 12:39 | P.PN ---
Progress Note - Text Progress Note Date: 12/12/19 Clinical Problems: Bipolar disorder most recent episode hypomanic, rule out amphetamine use disorder, rule out cannabis use disorder Interim history: I reviewed the medical record, interviewed the patient and discuss his treatment and treatment plan during team meeting. He is irritable and argumentative. He denies that he has a mental illness or requires psychiatric and/or mental health treatment. He did not attend therapeutic groups or activities yesterday. He slept 4 hours last night. He has had no episode of behavioral dyscontrol or received IM medication in the last 24 hours. Mental status exam: He presented as a thin 19-year-old young male. He is withdrawn but becomes angry when discussing the circumstances that led to his hospitalization. His speech was spontaneous with decreased rate, rhythm and volume. His affect was depressed but not inappropriate. He did not express suicidal ideation or wishes. He denied homicidal ideation. His thinking was concrete but his associations were coherent and organized. He perseverated about the hospitalization, the involuntary process, medications and his mother. He denied hallucinations did not appear to be responding to internal stimuli. Assessment: He appears more depressed, withdrawn and less involved with therapeutic activities and his peers. We are waiting the second opinion as requested by his workers compensation defense attorney. Plan: Continue inpatient treatment. Safety precautions. Continue inpatient treatment pending the probate hearing. Continue discussion of treatment for his mood disorder. Continue Ativan 1 mg IM 3 times a day when necessary and Geodon 20 mg IM twice a day when necessary for agitation acute psychosis. Encourage participation in therapeutic groups and activities as tolerated. Evaluate clinical status response to treatment daily basis.
--- NOTE | 2019-12-14 12:27 | PN ---
DATE OF SERVICE: 12/14/2019 PROGRESS NOTE CHIEF COMPLAINT: The patient was admitted on petition completed by his mother. He had disorganized behavior including reckless behavior with potential harm. He had delusions. INTERVAL HISTORY: Patient continues to do the same. He adamantly denies all that was documented by his mother. He continues to state that he does not have any mental health issues. He does not believe that what was documented by his mother is accurate. Overall he has tended to wander the unit. He will interact some with others. He persists with the idea of following through with the court process. He generally has been cooperative on the unit. He has not had significant behavioral issues. He has been attending groups. He chooses not to consider taking any psychotropic medications. MENTAL STATUS: Patient sat with a little restlessness. He gave fairly good eye contact. He responded to questions appropriately. He could get intense at times with his feeling that he has been mistreated in the process of being admitted involuntarily. His affect was somewhat intense. His mood dysphoric. He was distressed about his situation. There was no outward evidence of thought disorder. He voiced no thoughts of harm to self or others. Cognition was clear. ASSESSMENT: I will continue the current diagnosis and treatment plan. The patient continues all psychotropic medications. I did a brief review of the legal process relating to his involuntary status. Patient seemed to have good understanding of the situation. An independent psychiatric evaluation is pending. We will continue to focus on stabilization and discharge planning. BLAINE / KARLA: [id number] / [id number]
--- NOTE | 2019-12-14 12:33 | PN ---
PROGRESS NOTE DATE OF SERVICE: 12/14/2019 CHIEF COMPLAINT: The patient was admitted on petition completed by his mother for concerns of disorganized behavior and reckless behavior, posing potential threat of self-harm. INTERVAL HISTORY: The patient continues the same. He comes out in the day area. He wanders about. He interacts with others. He has been attending groups and has been appropriate in groups. He has been sleeping well at nighttime. He has no specific complaints or concerns. He has good understanding of his situation in regard to his involuntary hospitalization. He continues to elect not to take medications. MENTAL STATUS: Patient gave fairly good eye contact. Psychomotor activity for the most part was normal. Answered questions with brief responses. His thoughts were clear. His affect was in a reasonable range. His mood was quiet. He did not appear to be significantly distressed. There was no indication of thought disorder. He voiced no thoughts of harm to self or others. Cognition was clear. ASSESSMENT: I will continue the current diagnosis and treatment plan. The patient will continue the process regarding his petition for involuntary hospitalization. We will focus on stabilization and discharge planning. BLAINE / TONIN: [id number] /
[2019-12-14] MEDS: ACETAMINOPHEN TAB 325 MG TAB PO PRN (22:26)
--- NOTE | 2019-12-15 15:48 | P.PN ---
Progress Note - Text Progress Note Date: 12/15/19 Clinical Problems: Bipolar disorder most recent episode hypomanic, rule out amphetamine use disorder, rule out cannabis use disorder Interim history: I reviewed the medical record, interviewed the patient and discuss his treatment and treatment plan during team meeting. He would not make eye contact, neologisms for the interview. He had his independent evaluation this morning. He is attending therapeutic groups or activities yesterday. He slept 5 hours last night. He continues to request Ativan 1 mg when necessary for complaints of subjective anxiety. Mental status exam: He presented as a thin 19-year-old young male. He was angry and uncooperative. Assessment: He is more angry than on prior encounters. We're waiting his probate hearing. Plan: Continue inpatient treatment. Safety precautions. Continue inpatient treatment pending the probate hearing. Continue discussion of treatment for his mood disorder. Continue Ativan 1 mg IM 3 times a day when necessary and Geodon 20 mg IM twice a day when necessary for agitation acute psychosis. Encourage participation in therapeutic groups and activities as tolerated. Evaluate clinical status response to treatment daily basis.
--- NOTE | 2019-12-16 13:05 | P.PN ---
Progress Note - Text Progress Note Date: 12/16/19 Clinical Problems: Bipolar disorder most recent episode hypomanic, rule out amphetamine use disorder, rule out cannabis use disorder Interim history: I reviewed the medical record, interviewed the patient and discuss his treatment and treatment plan during team meeting. He would not make eye contact or come into the office for the interview. He avoids many in the hallways. He is attending therapeutic groups or activities yesterday. He slept 5 hours last night. He continues to request Ativan 1 mg when necessary for complaints of subjective anxiety. He has had no episodes of agitation or behavioral dyscontrol in the last 48 hours. Mental status exam: He presented as a thin 19-year-old young male who was avoidant and uncooperative. He did not make eye contact. He is intermittently restless but not agitated or impulsive. Assessment: He is more angry than on prior encounters. We're waiting his probate hearing. Plan: Continue inpatient treatment. Safety precautions. Continue inpatient treatment pending the probate hearing. Continue discussion of treatment for his mood disorder. Continue Ativan 1 mg IM 3 times a day when necessary and Geodon 20 mg IM twice a day when necessary for agitation acute psychosis. Encourage participation in therapeutic groups and activities as tolerated. Evaluate clinical status response to treatment daily basis.
[2019-12-16] MEDS: ACETAMINOPHEN TAB 325 MG TAB PO PRN (23:01)
--- NOTE | 2019-12-17 12:09 | P.PN ---
Progress Note - Text Progress Note Date: 12/17/19 Clinical Problems: Bipolar disorder most recent episode hypomanic, rule out amphetamine use disorder, rule out cannabis use disorder Interim history: I reviewed the medical record, attempted to interviewed the patient and discuss his treatment and treatment plan during team meeting. He would not make eye contact or come into the office for the interview. He refused to speak with me. He avoids many in the hallways. He is attending therapeutic groups or activities yesterday. He slept 2 hours last night. He continues to request Ativan 1 mg when necessary for complaints of subjective anxiety. He has had no episodes of agitation or behavioral dyscontrol in the last 48 hours. Mental status exam: He presented as a thin 19-year-old young male who was avoidant and uncooperative. He did not make eye contact. He is intermittently restless but not agitated or impulsive. Assessment: He is angry about discontinued and extended psychiatric hospitalization. We're waiting his probate hearing. Plan: Continue inpatient treatment. Safety precautions. Continue inpatient treatment pending the probate hearing. Continue discussion of treatment for his mood disorder. Continue Ativan 1 mg IM 3 times a day when necessary and Geodon 20 mg IM twice a day when necessary for agitation acute psychosis. Encourage participation in therapeutic groups and activities as tolerated. Evaluate clinical status response to treatment daily basis.
[2019-12-17 14:04] VITALS: BMI 21.7
--- NOTE | 2019-12-18 13:21 | P.PN ---
Progress Note - Text Progress Note Date: 12/18/19 Clinical Problems: Bipolar disorder most recent episode hypomanic, rule out amphetamine use disorder, rule out cannabis use disorder Interim history: I reviewed the medical record, attempted to interviewed the patient and discuss his treatment and treatment plan during team meeting. He came to my office to the interview. He stated that he is "just waiting". He denied problems or concerns. He plans to live with his grandmother after discharge. He alleged that his father as assist him with finding "2 jobs" after he leaves the hospital. He is no longer talking about going to [place] and wanting to become a "rapper". He is attending therapeutic groups or activities yesterday. He slept 4 hours last night. He has had no episodes of agitation or behavioral dyscontrol in the last 48 hours. Mental status exam: He presented as a thin 19-year-old young male who was pleasant on approach. He made eye contact and attended to interview. He showed no abnormality of psychomotor activity. His speech was slow but with normal rate and rhythm. Affect was stable. He denied suicidal ideation or wishes. He expressed ideas reference or paranoid ideation. He did not express grandiose delusions. His thinking was concrete but his associations were coherent and logical. He denied hallucinations and did not appear to responding to internal internal stimuli. Assessment: He is angry about this extended psychiatric hospitalization. We're waiting his probate hearing. Plan: Continue inpatient treatment. Safety precautions. Continue inpatient treatment pending the probate hearing. Continue Ativan 1 mg IM 3 times a day when necessary and Geodon 20 mg IM twice a day when necessary for agitation acute psychosis. Encourage participation in therapeutic groups and activities as tolerated. Evaluate clinical status response to treatment daily basis.
[2019-12-19] MEDS: LORazepam 0.5 MG TAB PO PRN (00:45)
--- NOTE | 2019-12-19 11:08 | P.PN ---
Progress Note - Text Progress Note Date: 12/19/19 Clinical Problems: Bipolar disorder most recent episode hypomanic, rule out amphetamine use disorder, rule out cannabis use disorder Interim history: I reviewed the medical record, attempted to interviewed the patient and discuss his treatment and treatment plan during team meeting. He denied problems or concerns other than waiting for the probate hearing. He is attending therapeutic groups or activities yesterday. He slept 4 hours last night. He has had no episodes of agitation or behavioral dyscontrol in the last 24 hours. Mental status exam: He presented as a thin 19-year-old young male who was pleasant on approach. He made eye contact and attended to interview. He s howed no abnormality of psychomotor activity. His speech was slow but with normal rate and rhythm. Affect was stable. He denied suicidal ideation or wishes. He expressed ideas reference or paranoid ideation. He did not express grandiose delusions. His thinking was concrete but his associations were coherent and logical. He denied hallucinations and did not appear to responding to internal internal stimuli. Assessment: He is angry about this extended psychiatric hospitalization. We're waiting his probate hearing. Plan: Continue inpatient treatment. Safety precautions. Continue inpatient treatment pending the probate hearing. Continue Ativan 1 mg IM 3 times a day when necessary and Geodon 20 mg IM twice a day when necessary for agitation acute psychosis. Encourage participation in therapeutic groups and activities as tolerated. Evaluate clinical status response to treatment daily basis.
--- NOTE | 2019-12-20 10:17 | P.PN ---
Progress Note - Text Progress Note Date: 12/20/19 Clinical Problems: Bipolar disorder most recent episode hypomanic, rule out amphetamine use disorder, rule out cannabis use disorder Interim history: I reviewed the medical record and interviewed the patient. He denied problems or concerns other than waiting for the probate hearing. He is attending 1 therapeutic group yesterday. He slept 4 hours last night. He has had no episodes of agitation or behavioral dyscontrol in the last 24 hours. Mental status exam: He presented as a thin 19-year-old young male who was pleasant on approach. He made eye contact and attended to interview. He showed no abnormality of psychomotor activity. His speech was slow but with normal rate and rhythm. Affect was stable. He denied suicidal ideation or wishes. He expressed ideas reference or paranoid ideation. He did not express grandiose delusions. His thinking was concrete but his associations were coherent and logical. He denied hallucinations and did not appear to responding to internal internal stimuli. Assessment: He has minimally mentally ill and much improved from admission. Due to his decisions about the involuntary hospitalization we are waiting a probate hearing. Plan: Continue inpatient treatment. Safety precautions. Continue inpatient treatment pending the probate hearing. Continue Ativan 1 mg IM 3 times a day when necessary and Geodon 20 mg IM twice a day when necessary for agitation acute psychosis. Encourage participation in therapeutic groups and activities as tolerated. Evaluate clinical status response to treatment daily basis.
[2019-12-21] MEDS: LORazepam 0.5 MG TAB PO PRN (01:51)
--- NOTE | 2019-12-21 12:34 | P.PN ---
Progress Note - Text Progress Note Date: 12/21/19 Clinical Problems: Bipolar disorder most recent episode hypomanic, rule out amphetamine use disorder, rule out cannabis use disorder Interim history: I reviewed the medical record and interviewed the patient. He has decided to wave the probate court hearing and stipulated to an involuntary order. He spoke with his father who concurs with his decision. He left a message with his bankruptcy attorney and the community service manager will speak to probate court on Sunday. He did not attend therapeutic groups or activities yesterday. He slept 4 hours last night. He has had no episodes of agitation or behavioral dyscontrol in the last 24 hours. Mental status exam: He presented as a thin 19-year-old young male who was pleasant on approach. He made eye contact and attended to interview. He showed no abnormality of psychomotor activity. His speech was slow but with normal rate and rhythm. Affect was stable. He denied suicidal ideation or wishes. He expressed ideas reference or paranoid ideation. He did not express grandiose delusions. His thinking was concrete but his associations were coherent and logical. He denied hallucinations and did not appear to responding to internal internal stimuli. Assessment: He is minimally mentally ill and much improved from admission. He h as agreed to wave the probate hearing and stipulated to treatment order. He can be discharged after he completes waives and stipulates. Plan: Continue inpatient treatment. Safety precautions. Discharge after he waives and stipulates. Continue Ativan 1 mg IM 3 times a day when necessary and Geodon 20 mg IM twice a day when necessary for agitation acute psychosis. Follow[facility]up with [facility]. Encourage participation in therapeutic groups and activities as tolerated. Evaluate clinical status response to treatment daily basis.
[2019-12-22] MEDS: ACETAMINOPHEN TAB 325 MG TAB PO PRN (00:09)
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
--- NOTE | 2019-12-23 13:53 | P.PN ---
Progress Note - Text Progress Note Date: 12/23/19 I reviewed the medical record, interviewed the patient and discuss his treatment and treatment plan during team meeting. Interim history: . He was on the phone and agreed to follow me for interview ,he stated that he called his job and he was told that he was not terminated and he will have raise when he is back"My hourly rate will be 13 dollars instead of 12" He stated that he is willing to see outpatient therapist but he does not believe that he needs any psychotropic medications He did not require any prn for last 3 days ,no agitation or behavior disturbance,still resistant to attend therapeutic groups or activities According to team staff patient father does not want his son on any psychotropic medication ,patient had independent evaluation ordered by the court Mental status exam: He presented as young male who was pleasant during the interview. He made eye contact and appeared to attend to the interview. He had a bright facial expression. His speech was spontaneous with normal rate, rhythm and volume. His affect was constricted ,stated mood "OK". He did not express suicidal ideation or wishes. He denied homicidal ideation. His thinking was concrete but his associations were coherent and organized. . He denied hallucinations did not appear to be responding to internal stimuli. Assessment: He is minimally mentally ill and much improved from admission. He has agreed to wave the probate hearing and stipulated to treatment order. He c an be discharged after he completes waives and stipulates. Plan: Continue inpatient treatment. Safety precautions. Discharge after he waives and stipulates. Continue Ativan 1 mg IM 3 times a day when necessary and Geodon 20 mg IM twice a day when necessary for agitation acute psychosis. Follow-up with community mental health. Encourage participation in therapeutic groups and activities as tolerated.
--- NOTE | 2019-12-24 10:23 | P.PN ---
Progress Note - Text Progress Note Date: 12/24/19 I reviewed the medical record, interviewed the patient and discuss his treatment and treatment plan during team meeting. I did review independent evaluation by Kaden Rich ,Ph.D Vitals:temp:98.4,Pulse:58,,R:16,BP:106/63 Interim history: . He was on the phone and agreed to follow me for interview He stated that he is willing to see outpatient therapist but he does not believe that he needs any psychotropic medications. I discussed with him our recommendations as he did sign stipulation yesterday,he replied "If you want me on medication just give me anxiety pills at night" He did not require any prn for last 4 days ,no agitation or behavior disturbance,still resistant to attend therapeutic groups or activities PER NOTE:(Sanjeev signed for pts susan Jeffries. She confirmed that pt can stay with her temporarily until he "gets back on his feet". He plans to return to [place] as he is employed here, however, will stay with susan until able to save money for his own apartment. Per susan, she will pick him up upon dc and make sure he makes his appts at [facility]. She also confirmed no guns in the home. Pt presents as calm and cooperative and motivated for outpatient tx. )) Mental status exam: He presented as young male who was anxious during the interview. He made eye contact and appeared to attend to the interview His speech was spontaneous with normal rate, rhythm and volume. His affect was constricted ,stated mood "OK". He did not express suicidal ideation or wishes. He denied homicidal ideation. His thinking was concrete but his associations were coherent and organized. . He denied hallucinations did not appear to be responding to internal stimuli. Assessment: He is minimally mentally ill and much improved from admission. Plan: Continue inpatient treatment as patient stated that his grandmother will pick him and she has to drop him over his roomate place as he is planning to stay in [place] , will clarify post-plan discharge Safety precautions. He agreed to start low dose of Seroquel tonight and monitor any side-effect. Continue Ativan 1 mg IM 3 times a day when necessary and Geodon 20 mg IM twice a day when necessary for agitation acute psychosis. Most probably he will be discharged tomorrow Follow-up with community mental health. Encourage participation in therapeutic groups and activities as tolerated.
[2019-12-24] MEDS ORDERED: QUEtiapine 50 MG TAB PO SCH (21:00)
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
[2019-12-25 06:02] VITALS: BP 113/64; PULSE 65; RESP 18; TEMP 97.8
== END 2019-12-25 13:40 | disposition home or self-care (01) | DRG 885 ==
LOC: EC 22:56 → 3MHU 11-27 05:09
PROVIDERS: ADMIT Psychiatry & Neurology Psychiatry; ATTEND Psychiatry & Neurology Psychiatry
DX: F39 Unspecified mood [affective] disorder (principal); F10.19 Alcohol abuse with unspecified alcohol-induced disorder; F12.19 Cannabis abuse with unspecified cannabis-induced disorder; F15.19 Other stimulant abuse with unspecified stimulant-induced disorder; R45.1 Restlessness and agitation; F41.9 Anxiety disorder, unspecified; F29 Unspecified psychosis not due to a substance or known physiological condition
CPT/HCPCS: 36415; 80053; 80061; 80076; 80306; 80320; 80329; 82075; 83036; 83520; 84443; 85025; 99285

== ENCOUNTER 2021-01-17 17:49 | Emergency (ER) | payer BC ==
[2021-01-17 19:25] VITALS: BP 122/75; PULSE 67; RESP 18; TEMP 97.8
--- NOTE | 2021-01-17 20:03 | ED ---
Skin/Abscess/FB HPI - General Chief complaint: Skin/Abscess/Foreign Body Stated complaint: ingrown toenail Time Seen by Provider: 01/17/21 19:42 Source: patient, RN notes reviewed Mode of arrival: ambulatory Limitations: no limitations - History of Present Illness Initial comments: This is a 19-year-old male presents emergency department to complaint of ingrown toenail. Patient states that toenail has been ingrown, nausea red, swollen painful. No fevers or chills no other complaints. - Related Data Previous Rx's Medication Instructions Recorded Cephalexin [Keflex] 500 mg PO Q6HR #40 cap 01/17/21 Allergies Allergy/AdvReac Type Severity Reaction Status Date / Time No Known Allergies Allergy Verified 01/17/21 19:23 Review of Systems ROS Statement: Those systems with pertinent positive or pertinent negative responses have been documented in the HPI. ROS Other: All systems not noted in ROS Statement are negative. Past Medical History Past Medical History: No Reported History Additional Past Medical History / Comment(s): Anger problems History of Any Multi-Drug Resistant Organisms: None Reported Past Surgical History: No Surgical Hx Reported Past Psychological History: Depression Smoking Status: Never smoker Past Alcohol Use History: None Reported Past Drug Use History: None Reported - Past Family History Father Family Medical History: No Reported History Mother Family Medical History: No Reported History General Exam Limitations: no limitations General appearance: alert, in no apparent distress Head exam: Present: atraumatic, normocephalic, normal inspection Respiratory exam: Present: normal lung sounds bilaterally. Absent: respiratory distress, wheezes, rales, rhonchi, stridor Cardiovascular Exam: Present: regular rate, normal rhythm, normal heart sounds. Absent: systolic murmur, diastolic murmur, rubs, gallop, clicks Extremities exam: Present: other (First toe erythematous nail fold, some purulent drainage ingrown toenail noted) Course Vital Signs 01/17/21 19:23 Temperature 97.8 F Pulse Rate 67 Respiratory 18 Rate Blood Pressure 122/75 O2 Sat by Pulse 96 Oximetry Medical Decision Making - Medical Decision Making Patient started on antibiotics, advised to do warm soaks and follow-up with podiatry for ingrown toe nail. Disposition Clinical Impression: Ingrown toenail with infection Disposition: HOME SELF-CARE Condition: Stable Instructions (If sedation given, give patient instructions): Ingrown Nail (ED) Additional Instructions: Please return to the Emergency Department if symptoms worsen or any other concerns. Prescriptions: Cephalexin [Keflex] 500 mg PO Q6HR #40 cap Is patient prescribed a controlled substance at d/c from ED?: No Referrals: None,Stated [Primary Care Provider] - 1-2 days Jose Luis Lopez DPM [STAFF PHYSICIAN] - 1-2 days Time of Disposition: 20:03
== END 2021-01-17 20:12 | disposition home or self-care (01) ==
LOC: EC 17:49
DX: L60.0 Ingrowing nail (principal); F32.9 Major depressive disorder, single episode, unspecified
CPT/HCPCS: 99283

== ENCOUNTER 2024-02-14 20:12 | Emergency (ER) | payer BC, OTHER ==
[2024-02-14 20:28] VITALS: RESP 18
[2024-02-14 21:42] VITALS: BP 130/79; PULSE 71; TEMP 98.2
== END 2024-02-14 21:41 | disposition home or self-care (01) ==
LOC: EC 20:12
DX: Z02.83 Encounter for blood-alcohol and blood-drug test (principal)
CPT/HCPCS: 99499